=== PATIENT | male | born 1990 | race Caucasian/White ===

== ENCOUNTER 2020-12-31 09:10 | Emergency (ER) | payer SELFPAY ==
[~2020-12-31] VITALS: Ht 175.3 cm; Wt 81.6 kg
[2020-12-31 09:14] VITALS: BP 140/67
--- NOTE | 2020-12-31 09:14 | NUR ---
BIBA TO BED 7
--- NOTE | 2020-12-31 09:20 | NUR ---
30 Y/O MALE BIBA FROM HOME C/O CP, SOB, AND NASAL CONGESTION S/P SNORTING METH FOR THE FIRST TIME X40 MINS AGO. SPO2 99% ON RA. PT RATES PAIN 9/10 THAT HE DESCRIBES SHARP AND NONRADIATING. PT DENIES OTHER DRUG USE. PT A/O X4 WITH EVEN AND UNLABORED RESPIRATIONS. 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
--- NOTE | 2020-12-31 10:20 | NUR ---
LAB AT BEDSIDE FOR BLOOD DRAW
[2020-12-31 10:33] LABS: BASOPHILS # (AUTO) 0.2 K/uL (0.00-0.22); BASOPHILS % (AUTO) 3.3 % (0.0-2.0); EOSINOPHILS % (AUTO) 0.6 % (0.0-4.0); HEMATOCRIT 38.5 % (36-52); HEMOGLOBIN 12.4 g/dL (12.0-18.0); MEAN CORPUSCULAR HEMOGLOBIN 25 pg (27-31); MEAN CORPUSCULAR HGB CONC 32 g/dL (33-37); MEAN CORPUSCULAR VOLUME 76.1 fL (80-94); MONOCYTES # (AUTO) 0.5 K/uL (0.8-1.0); MONOCYTES % (AUTO) 8.1 % (1.7-9.3); NEUTROPHILS # (AUTO) 4.8 K/uL (1.8-7.7); PLATELET COUNT (AUTO) 327 K/uL (140-450); RED BLOOD CELL COUNT(AUTO) 5.06 MIL/uL (4.20-6.10); RED CELL DISTRIBUTION WIDTH 13.8 % (11.6-13.7); WHITE BLOOD COUNT (AUTO) 6.6 K/uL (4.8-10.8)
[2020-12-31 10:48] LABS: ALBUMIN 3.6 g/dL (3.4-5.0); ANION GAP 13.6 (8-16); CARBON DIOXIDE 27.9 mmol/L (21-32); CREATININE 0.7 mg/dL (0.6-1.3); POTASSIUM 3.5 mmol/L (3.5-5.1); TOTAL BILIRUBIN 0.5 mg/dL (0.0-1.0)
--- NOTE | 2020-12-31 12:26 | NUR ---
DR GIBSON AT BEDSIDE REEVALUATING PT
--- NOTE | 2020-12-31 12:33 | NUR ---
Patient discharged with v/s stable. Written and verbal after care instructions ABOUT NONSPECIFIC CHEST PAIN AND STIMULANT USE DISORDER- METHAMPHETAMINES given and explained. Patient verbalized understanding. Ambulatory with steady gait. All questions addressed prior to discharge. Advised to follow up with PMD.
[2020-12-31 12:34] VITALS: BP 124/57
[2021-01-01] MEDS ORDERED: BENZ-196 PO (07:21)
== END 2020-12-31 12:33 | disposition home or self-care (01) ==
LOC: MED 09:10
DX: R06.02 Shortness of breath (principal); R07.9 Chest pain, unspecified; F15.10 Other stimulant abuse, uncomplicated
CPT/HCPCS: 36415; 71045; 80053; 84484; 85025; 93005; 99285

== ENCOUNTER 2021-01-01 05:12 | Emergency (ER) | payer SELFPAY ==
[~2021-01-01] VITALS: Ht 177.8 cm; Wt 81.6 kg
[2021-01-01 05:28] VITALS: BP 125/74
--- NOTE | 2021-01-01 05:30 | NUR ---
30/M BIB SELF C/O CHEST PAIN SHARP 11/15. NONRAD. -N/V. +DIZZY +METH. PT STATES HE WAS HERE YESTERDAY FOR SAME PROBLEM. DENIES PMH NKDA
--- NOTE | 2021-01-01 05:40 | NUR ---
DR. FLEMING EXAMINING PATIENT
[2021-01-01] MEDS ORDERED: BENZ-196 PO (07:21)
[2021-01-01 07:40] VITALS: BP 122/70
--- NOTE | 2021-01-01 07:42 | NUR ---
NO NURSING CARE GIVEN
== END 2021-01-01 07:42 | disposition home or self-care (01) ==
LOC: MED 05:12
DX: R05 Cough (principal); F15.90 Other stimulant use, unspecified, uncomplicated; R06.02 Shortness of breath; Z79.899 Other long term (current) drug therapy
CPT/HCPCS: 71045; 99283

== ENCOUNTER 2021-01-10 10:36 | Emergency (ER) | payer SELFPAY ==
[~2021-01-10] VITALS: Ht 180.3 cm; Wt 81.6 kg
[~2021-01-10 10:36] MED LIST: BENZ-196 PO
--- NOTE | 2021-01-10 10:42 | NUR ---
BIBA TAKEN TO BED 3
[2021-01-10 10:47] VITALS: BP 132/79
--- NOTE | 2021-01-10 11:39 | NUR ---
30/M PRESENTS TO ED WITH C/O CHEST PAIN AND SOB X4 DAYS. PATIENT STATES SYMPTOMS HAVE BEEN INTERMITTENT, WORSENING TODAY. REPORTS RECENT USE OF METH AND VIAGRA, STATING HE HAS HAD AN ERECTION FOR A "FEW HOURS." PATIENT ALSO REPORTS RECENT LOSS OF TASTE AND SMELL, DENIES ANY CONTACT WITH ANYONE WITH COVID. DENIES TAKING ANYTHING FOR PAIN. DENIES FEVER, CHILLS, N/V/D, URINARY SYMPTOMS. PATIENT PLACED ON BEDSIDE MEDICAL RECORDS MANAGER.
[2021-01-10] MEDS ORDERED: PROM118S5 PO (11:45)
[2021-01-10] MEDS ORDERED: NAPR-1704 PO (11:45)
[2021-01-10 11:50] VITALS: BP 132/79
--- NOTE | 2021-01-10 12:17 | NUR ---
Patient discharged with v/s stable. Written and verbal after care instructions given and explained. Patient alert, oriented and verbalized understanding of instructions. Ambulatory with steady gait. All questions addressed prior to discharge. ID band removed. Patient advised to follow up with PMD. Rx of NAPROSYN AND PROMETHAZINE given. Patient educated on indication of medication including possible reaction and side effects. Opportunity to ask questions provided and answered.
== END 2021-01-10 12:17 | disposition home or self-care (01) ==
LOC: MED 10:36
DX: Z20.822 Contact with and (suspected) exposure to COVID-19 (principal); F17.200 Nicotine dependence, unspecified, uncomplicated; Z79.899 Other long term (current) drug therapy; Z79.1 Long term (current) use of non-steroidal anti-inflammatories (NSAID)
CPT/HCPCS: 71045; 93005; 99285; Q0092; U0003

== ENCOUNTER 2021-01-18 02:27 | Emergency (ER) | payer SELFPAY ==
[~2021-01-18] VITALS: Ht 177.8 cm; Wt 86.2 kg
[2021-01-18 02:27] VITALS: BP 136/76
[~2021-01-18 02:27] MED LIST changes: +NAPR-1704 PO; +PROM118S5 PO
--- NOTE | 2021-01-18 02:35 | NUR ---
PT BROUGHT TO BED 2 VIA PHYLLIS HARDY
--- NOTE | 2021-01-18 02:35 | NUR ---
PT AMBULATED TO BED #2
[2021-01-18 02:40] VITALS: BP 136/76
--- NOTE | 2021-01-18 02:42 | NUR ---
SEEN AND EXAMINED BY MARY ANNE
[2021-01-18] MEDS ORDERED: PHENYLEPHRINE 1% 15 ML BTL NS STA (03:05)
[2021-01-18] MEDS ORDERED: LIDOCAINE 2% 1000 MG/50 ML VIAL INJ ONE (03:10)
[2021-01-18] MEDS ORDERED: PHENYLEPHRINE 10 MG/ML VIAL ONE (03:35)
[2021-01-18] MEDS ORDERED: NACL 0.9% INJ ONE (03:40)
[2021-01-18] MEDS ORDERED: PHENYLEPHRINE INJ ONE (03:40)
--- NOTE | 2021-01-18 04:20 | NUR ---
PATIENT ELOPED FROM FACILITY. DISCHARGE INSTRUCTIONS NOT GIVEN TO PATIENT. DR. CARRINGTON NOTIFIED.
--- NOTE | 2021-01-18 04:20 | NUR ---
PT STATES "I NEED TO GO OUTSIDE AND MAKE A PHONE CALL." PT NOTIFIED THAT HE MUST REMAIN INSIDE THE DEPARTMENT TO RECEIVE CARE. PT EXITED FACILITY AT THIS TIME.
[2021-01-18 04:25] LABS: APPEARANCE,URINE CLEAR (CLEAR); BILIRUBIN,URINE NEGATIVE (NEGATIVE); BLOOD, URINE NEGATIVE (NEGATIVE); COLOR,URINE YELLOW (YELLOW); LEUKOCYTE ESTERASE ,URINE NEGATIVE (NEGATIVE); NITRITE, URINE NEGATIVE (NEGATIVE); UGLUCOSE NEGATIVE (NEGATIVE)
== END 2021-01-18 04:20 | disposition left against medical advice (07) ==
LOC: MED 02:27
DX: N48.30 Priapism, unspecified (principal); N50.812 Left testicular pain; Z79.899 Other long term (current) drug therapy; Z79.1 Long term (current) use of non-steroidal anti-inflammatories (NSAID)
CPT/HCPCS: 36415; 76870; 81003; 87491; 99284; J2001; J2370; Q0092

== ENCOUNTER 2021-02-01 11:21 | Emergency (ER) | payer SELFPAY ==
[~2021-02-01] VITALS: Ht 175.3 cm; Wt 80.7 kg
[2021-02-01 11:23] VITALS: BP 125/70
--- NOTE | 2021-02-01 11:25 | NUR ---
Patient ambulated from [facility] onto bed 03 with steady/even gait.
--- NOTE | 2021-02-01 11:35 | NUR ---
Dr. Gomez is evaluating patient at bedside
--- NOTE | 2021-02-01 11:42 | NUR ---
Patient refusing blood work at this time and states "I want to leave."
== END 2021-02-01 11:51 | disposition left against medical advice (07) ==
LOC: MED 11:21
DX: R07.9 Chest pain, unspecified (principal); F15.10 Other stimulant abuse, uncomplicated; F19.9 Other psychoactive substance use, unspecified
CPT/HCPCS: 93005; 99283

== ENCOUNTER 2021-02-20 01:25 | Emergency (ER) | payer SELFPAY ==
--- NOTE | 2021-02-20 01:48 | NUR ---
CALLED PATIENT NO ANSWER
--- NOTE | 2021-02-20 02:05 | NUR ---
CALLED FOR PATIENT NO ANSWER
--- NOTE | 2021-02-20 02:07 | NUR ---
PATIENT LEFT WITHOUT BEING SEEN BY DR. GARDUNO. NO FURTHER CARE PROVIDED FOR PATIENT.
== END 2021-02-20 01:48 | disposition left against medical advice (07) ==
LOC: MED 01:25
DX: Z53.21 Procedure and treatment not carried out due to patient leaving prior to being seen by health care provider (principal)

== ENCOUNTER 2021-02-26 07:21 | Emergency (ER) | payer SELFPAY ==
[~2021-02-26] VITALS: Ht 177.8 cm; Wt 88.5 kg
[2021-02-26 07:27] VITALS: BP 155/93
[2021-02-26] MEDS ORDERED: predniSONE 20 MG TAB PO ONE (07:50)
[2021-02-26] MEDS ORDERED: AZITHROMYCIN 250 MG TAB PO ONE (07:50)
[2021-02-26 08:42] VITALS: BP 155/93
[2021-02-26] MEDS ORDERED: PRED20TA5 PO (08:48)
[2021-02-26] MEDS ORDERED: AZIT250T4 PO (08:48)
== END 2021-02-26 08:42 | disposition left against medical advice (07) ==
LOC: MED 07:21
DX: J18.9 Pneumonia, unspecified organism (principal); Z20.822 Contact with and (suspected) exposure to COVID-19; F17.200 Nicotine dependence, unspecified, uncomplicated; F15.90 Other stimulant use, unspecified, uncomplicated; Z71.6 Tobacco abuse counseling; Z79.899 Other long term (current) drug therapy
CPT/HCPCS: 71045; 93005; 99285; J7512